=== PATIENT | female | born 1955 | race Caucasian/White ===

== ENCOUNTER 2019-04-25 13:13 | Outpatient (REF) | payer OTHER, SELFPAY ==
[2019-04-25 18:17] LABS: HCT 41.1 % (36.0-46.0); HGB 13.4 g/dL (12.0-15.5); Mean Corp. HGB Concentration 32.6 g/dL (32.0-36.0); Mean Corpuscular Hemoglobin 28.8 pg (27.0-33.0); Mean Corpuscular Volume 88.4 fL (80-95); Mean Platelet Volume 11.7 fL (8.0-11.0); Platelet Count 219 x1000/uL (130-400); RBC 4.65 m/cumm (4.00-5.20); RBC Distribution Width 13.9 % (11.7-14.6); White Blood Cell Count 6.34 k/cumm (4.4-10.8)
[2019-04-25 18:38] LABS: ALT 23 U/L (14-59); AST 31 U/L (15-37); Albumin 4.3 g/dL (3.4-5.0); Alkaline Phosphatase 79 U/L (46-116); Anion Gap 11.2 mmol/L (3-11); BUN 25 mg/dL (7-18); CO2 26.8 mmol/L (21.0-32.0); CREATININE 1.16 mg/dL (0.55-1.02); Calcium 9.1 mg/dL (8.5-10.1); Calculated LDL 240 mg/dL; Chloride 102 mmol/L (98-107); Cholesterol 315 mg/dL (50-200); Estimated GFR 47.49 (mL/min/1.73m2); Glucose 98 mg/dL (70-100); HDL Cholesterol 38 mg/dL (40-60); Potassium 4.3 mmol/L (3.5-5.1); Sodium 140 mmol/L (136-145); TSH (W/Ref FT4) 69.07 uIU/mL (0.36-3.74); Total Protein 8.2 g/dL (6.4-8.2); Triglyceride 187 mg/dL (30-150)
[2019-04-25 19:06] LABS: FREE T4 0.17 ng/dL (0.76-1.46)
[2019-04-25 19:35] LABS: Hemoglobin A1C 6.5 % (4.5-6.2)
== END 2019-04-25 13:33 ==
LOC: LBO 13:13
PROVIDERS: PCP Nurse Practitioner; Visit Provider Nurse Practitioner
DX: E66.9 Obesity, unspecified (principal); N95.0 Postmenopausal bleeding; R40.0 Somnolence; Z83.3 Family history of diabetes mellitus; I10 Essential (primary) hypertension
CPT/HCPCS: 80053; 80061; 83721; 85027; 83036; 84439; 84443

== ENCOUNTER 2019-05-23 00:48 | Outpatient (CLI) | payer OTHER, SELFPAY ==
--- NOTE | 2019-05-23 08:50 | DI.MAMMO_ITS ---
EXAM: MG MAMMO SCREENING CLINICAL HISTORY: screening, Z12.39. TECHNIQUE: Mammograms were interpreted according to the usual protocol including computer analysis w [employer] CAD system, tomosynthesis and C-view imaging. COMPARISON: No exams were available for comparison FINDINGS: The breast tissue is of moderate radiodensity. There is ill-defined region of asymmetric increased d ensity in the lateral portion of the right breast, which could represent an excrescence on the patien t's skin. There are no suspicious calcifications. In the absence of prior images, then further evalu ation with a craniocaudad compression spot film and if appropriate ultrasound is recommended. IMPRESSION: Region of small nodularity in the right breast. Further evaluation with a craniocaudad compression sp ot film and ultrasound is suggested. Category 0, this is a BI-RADS category B examination. BI-RADS Cat 0 - Assessment Incomplete: Need additional imaging evaluation Breast Density - Category B - Scattered areas of fibroglandular density
== END 2019-05-23 01:08 ==
PROVIDERS: PCP Nurse Practitioner; Visit Provider Nurse Practitioner
DX: Z12.31 Encounter for screening mammogram for malignant neoplasm of breast (principal); R92.8 Other abnormal and inconclusive findings on diagnostic imaging of breast
CPT/HCPCS: 77063; 77067

== ENCOUNTER 2019-06-05 01:21 | Outpatient (CLI) | payer OTHER, SELFPAY ==
--- NOTE | 2019-06-05 14:45 | DI.MAMMO_ITS ---
EXAM: US BREAST RT LIMITED AND MAMMOGRAM CLINICAL HISTORY: ASYMMETRIC INCREASED DENSITY IN LATERAL PORTION RT BREAST, F/U MAMMO TECHNIQUE: Additional images are interpreted according to the usual protocol including tomosynthesis and 2D imaging. Ultrasound performed using standard protocol. COMPARISON: No exams were available for comparison FINDINGS: Additional mammographic views of the right breast and right breast ultrasound are interpreted in conj unction. These examinations were obtained to evaluate an area of asymmetric density seen laterally i n the right breast on CC view of recent mammogram. Additional mammographic views show some persisten t radiodensity in this area but no definite mass. Breast ultrasound shows no evidence of a mass or c yst of the right breast. IMPRESSION: No specific evidence of malignancy at this time. Follow-up unilateral right breast mammogram recomme nded in 6 months. Category 3. Breast density, category B. BI-RADS Cat 3 - 6 month - Probably Benign Finding: Recommend follow-up mammography in 6 months. Breast Density - Category B - Scattered areas of fibroglandular density
== END 2019-06-05 01:41 ==
PROVIDERS: PCP Nurse Practitioner; Visit Provider Nurse Practitioner
DX: Z12.31 Encounter for screening mammogram for malignant neoplasm of breast (principal); R92.8 Other abnormal and inconclusive findings on diagnostic imaging of breast; N60.81 Other benign mammary dysplasias of right breast
CPT/HCPCS: 76642; 77063; 77067

== ENCOUNTER 2019-06-05 14:11 | Outpatient (REF) | payer OTHER, SELFPAY ==
--- NOTE | 2019-06-05 13:40 | PAPFT_PTH ---
PATIENT: Jessica Stokes LOC: [facility] U#:[id number] AGE/SX: 63/F ROOM: RE06/05/[address]: Rachel Sheridan : 1955 BED: DIS: 06/05/2019 SPEC #: [id number] RECD: 06/05/19 17:47 STATUS: MARLIN REMelody #: [id number] LATESHA: 06/05/19 13:[address]: Rachel Sheridan DEPT: [facility] Cytology RECD BY: Lara Garces ENTERED: 06/05/19 17:47 SP TYPE: PAPFT JUDSON DR: Paulette Carbajal APRN Tissues: 1 - CX/ENDOCX FOR PAP SMEARS Procedures: PAP THIN PREP/[facility] Screening HPV DNA PROBE Comments: [id number]
== END 2019-06-05 14:31 ==
LOC: LBN 14:11
PROVIDERS: PCP Nurse Practitioner; Visit Provider Obstetrics & Gynecology Gynecology
DX: Z12.4 Encounter for screening for malignant neoplasm of cervix (principal); Z11.51 Encounter for screening for human papillomavirus (HPV)
CPT/HCPCS: 88142; 87624

== ENCOUNTER 2019-11-21 02:50 | Outpatient (CLI) | payer OTHER, SELFPAY ==
[2019-11-21 08:32] LABS: Hemoglobin A1C 6.5 % (3.8-5.6)
[2019-11-21 09:34] LABS: Calculated LDL 147 mg/dL (<100); Cholesterol 219 mg/dL (<200); HDL Cholesterol 34 mg/dL (40-60); Triglyceride 190 mg/dL (<150)
[2019-11-21 09:50] LABS: FREE T4 0.83 ng/dL (0.76-1.46)
== END 2019-11-21 03:10 ==
PROVIDERS: PCP Nurse Practitioner; Visit Provider Nurse Practitioner
DX: E03.9 Hypothyroidism, unspecified (principal); I10 Essential (primary) hypertension; E11.9 Type 2 diabetes mellitus without complications; E78.00 Pure hypercholesterolemia, unspecified
CPT/HCPCS: 36415; 80061; 83036; 84439; 84443

== ENCOUNTER 2019-11-21 09:04 | Outpatient (CLI) | payer OTHER, SELFPAY ==
--- NOTE | 2019-11-21 08:12 | DIABASSESS_ITS ---
DESCRIPTION/ASSESSMENT: Jessica is here with A1c of 6.5. Nutrition: Jessica states she knows she needs to improve her eating habits. Physical Activity - minimal stating she is tired after work Medication / Monitoring - none Risks/Related health history - reported blood sugar is elevated. She is not in medication at this time. Coping - states she has high stress working at [employer] 5 days a week. INTERVENTION: Explained diagnostic criteria for diabetes and her early identification. Emphasized early intensive intervention for long lasting benefits. Food Guidelines - reviewed diabetes food guide focused on carbohydrate sources, portions, distribution, vegetables. Label reading focused on carbohydrate, fiber and polyunsaturated fats. She is able to translate the food guide to her sister's old exchange list from 1971 which she is familiar with and feels has worked for her in the past. She intends to follow [id number] calorie plan. Physical activity: Jessica had exercise equipment that needs to be cleaned off and she agrees to do this. In addition, she is willing to begin walking `0 minutes a day working up to 20 minutes most days. Risks/Related health history - discussed relation of hypertension with sodium intake. Coping: Jessica is aware that physical activity may be a good stress reliever for her. ACTION PLAN: Jessica will follow 12-1500 calorie meal plan focused on carbohydrate sources and increasing vegetables Jessica will work toward 20 minutes walking or equivalent daily 7 days a week. We will be in touch by telephone for follow up. Individual MNT __2__ units billed TIME IN: 814 OUT: 854 No DM group education series being offered at this time.
== END 2019-11-21 09:24 ==
PROVIDERS: PCP Nurse Practitioner; Visit Provider Dietitian, Registered
DX: E11.9 Type 2 diabetes mellitus without complications (principal); Z71.3 Dietary counseling and surveillance; Z79.4 Long term (current) use of insulin
CPT/HCPCS: 97802

== ENCOUNTER 2020-02-27 02:39 | Outpatient (CLI) | payer OTHER, SELFPAY ==
[2020-02-27 09:26] LABS: BUN 23 mg/dL (7-18); CREATININE 0.93 mg/dL (0.55-1.02); Calcium 9.3 mg/dL (8.5-10.1); Chloride 104 mmol/L (98-107); Glucose 102 mg/dL (74-106); Potassium 4.1 mmol/L (3.5-5.1); Sodium 140 mmol/L (136-145); TSH (W/Ref FT4) 1.11 uIU/mL (0.36-3.74)
== END 2020-02-27 02:59 ==
PROVIDERS: PCP Nurse Practitioner; Visit Provider Nurse Practitioner
DX: E03.9 Hypothyroidism, unspecified (principal); R94.4 Abnormal results of kidney function studies
CPT/HCPCS: 36415; 80048; 84443

== ENCOUNTER 2020-11-05 01:33 | Outpatient (CLI) | payer OTHER, SELFPAY ==
--- NOTE | 2020-11-05 07:00 | DI.US_ITS ---
EXAM: Bilateral US SOFT TISSUE EXTREMITY CLINICAL HISTORY: BILAT WRIST MASSES, ? LIPOMAS,M25.539,R22.33. TECHNIQUE: Ultrasound was performed using standard protocol. COMPARISON: No previous for comparison. FINDINGS: Sonographic assessment utilizing grayscale and color Doppler imaging was performed and targeted to th e area of clinical concern. In the right wrist, there is a 1.5 x 0.6 x 1.7 cm fluid collection on the dorsal medial wrist which m ay be associated with an adjacent tendon. Differential considerations include tenosynovitis or gangl ion. There is also 1.0 x 0.3 x 1.2 cm simple fluid collection in the dorsal lateral aspect of the wr ist. This may represent a ganglion or other cystic lesion. In the left wrist, there is a 2.5 x 4 x 0.9 cm complex cystic lesion on the dorsum of the wrist with some peripheral vascularity. It does appear that tendons are associated with this collection. Diffe rential considerations include tenosynovitis or ganglion. An infectious or hemorrhagic process canno t be excluded given the vascularity and internal debris. IMPRESSION: Fluid collections on the dorsum of the both wrists. Please see the above discussion for complete det ails. MRI of the wrists should be considered for further evaluation. DATA REPOSITORY:
== END 2020-11-05 01:53 ==
PROVIDERS: PCP Nurse Practitioner; Visit Provider Nurse Practitioner
DX: R22.32 Localized swelling, mass and lump, left upper limb (principal); R22.31 Localized swelling, mass and lump, right upper limb
CPT/HCPCS: 76881

== ENCOUNTER 2020-11-13 02:22 | Outpatient (CLI) | payer OTHER, SELFPAY ==
[2020-11-13 08:32] LABS: HCT 40.9 % (36.0-46.0); HGB 13.3 g/dL (11.2-15.7); MCH 27.4 pg (27.0-33.0); MCHC 32.5 % (32.0-36.0); MCV 84.3 fL (80-95); MPV 10.4 fL (8.0-11.0); Platelet Count 202 10^3/uL (130-400); RBC 4.85 10^6/uL (3.93-5.22); RDW 12.7 % (11.7-14.6); RDW-SD 39.1 fL; WBC 9.39 10^3/uL (4.4-10.8)
[2020-11-13 09:43] LABS: ALT 22 U/L (14-59); AST 16 U/L (15-37); Albumin 3.7 g/dL (3.4-5.0); Alkaline Phosphatase 103 U/L (46-116); Anion Gap 8.2 mmol/L (3-11); BUN 23 mg/dL (7-18); Bilirubin, Total 0.9 mg/dL (0.2-1.0); CO2 27.8 mmol/L (21.0-32.0); CREATININE 0.9 mg/dL (0.55-1.02); Calcium 9.1 mg/dL (8.5-10.1); Calculated LDL 133 mg/dL (<100); Chloride 103 mmol/L (98-107); Cholesterol 195 mg/dL (<200); Glucose 98 mg/dL (74-106); HDL Cholesterol 43 mg/dL (40-60); Potassium 4.3 mmol/L (3.5-5.1); Sodium 139 mmol/L (136-145); TSH (W/Ref FT4) 0.38 uIU/mL (0.36-3.74); Total Protein 7.4 g/dL (6.4-8.2); Triglyceride 97 mg/dL (<150)
[2020-11-13 09:55] LABS: C-Reactive Protein 0.76 mg/dL (0.0-0.3)
[2020-11-13 12:00] LABS: ESR 28 mm/hr (<or=30)
[2020-11-13 16:55] LABS: Rheumatoid Factor <8.6 IU/mL (<12.0)
[2020-11-14 10:46] LABS: Lyme Ab w Rflx to Lyme Confirm Negative (Negative)
[2020-11-14 15:00] LABS: ANA Interpretation Negative (Negative)
== END 2020-11-13 02:23 | disposition home or self-care (01) ==
PROVIDERS: PCP Nurse Practitioner; Visit Provider Nurse Practitioner
DX: I10 Essential (primary) hypertension (principal); E03.9 Hypothyroidism, unspecified; E78.00 Pure hypercholesterolemia, unspecified; R22.33 Localized swelling, mass and lump, upper limb, bilateral; R20.0 Anesthesia of skin; G89.29 Other chronic pain
CPT/HCPCS: 36415; 80053; 80061; 85027; 85652; 84443; 86038; 86140; 86431; 86618

== ENCOUNTER 2021-12-16 01:42 | Outpatient (CLI) | payer OTHER, SELFPAY ==
[2021-12-16 09:06] LABS: ALT 26 U/L (14-59); AST 18 U/L (15-37); Albumin 3.8 g/dL (3.4-5.0); Alkaline Phosphatase 100 U/L (46-116); Anion Gap 7.1 mmol/L (3-11); BUN 21 mg/dL (7-18); Bilirubin, Total 0.9 mg/dL (0.2-1.0); CO2 30.9 mmol/L (21.0-32.0); CREATININE 0.9 mg/dL (0.55-1.02); Calcium 8.9 mg/dL (8.5-10.1); Calculated LDL 145 mg/dL (<100); Chloride 104 mmol/L (98-107); Cholesterol 216 mg/dL (<200); Glucose 100 mg/dL (74-106); HDL Cholesterol 42 mg/dL (40-60); Potassium 4.2 mmol/L (3.5-5.1); Sodium 142 mmol/L (136-145); TSH (W/Ref FT4) 1.44 uIU/mL (0.36-3.74); Total Protein 7.4 g/dL (6.4-8.2); Triglyceride 148 mg/dL (<150)
== END 2021-12-16 01:43 | disposition home or self-care (01) ==
LOC: LBO 01:43
PROVIDERS: PCP Nurse Practitioner; Visit Provider Nurse Practitioner
DX: I10 Essential (primary) hypertension (principal); E78.00 Pure hypercholesterolemia, unspecified
CPT/HCPCS: 36415; 80053; 80061; 84443

== ENCOUNTER 2022-12-15 02:41 | Outpatient (CLI) | payer OTHER, SELFPAY ==
[2022-12-15 11:19] LABS: Anion Gap 5.9 mmol/L (3-11); BUN 19 mg/dL (7-18); CO2 30.1 mmol/L (21.0-32.0); CREATININE 0.9 mg/dL (0.55-1.02); Calcium 9.2 mg/dL (8.5-10.1); Chloride 102 mmol/L (98-107); Estimated GFR 70.95 (mL/min/1.73m2); Glucose 98 mg/dL (74-106); Sodium 138 mmol/L (136-145); TSH (W/Ref FT4) 1.25 uIU/mL (0.36-3.74)
== END 2022-12-15 02:42 | disposition home or self-care (01) ==
LOC: LBO 02:43
PROVIDERS: PCP Nurse Practitioner; Visit Provider Nurse Practitioner
DX: E03.9 Hypothyroidism, unspecified (principal); I10 Essential (primary) hypertension; E78.00 Pure hypercholesterolemia, unspecified; R73.03 Prediabetes
CPT/HCPCS: 36415; 80048; 84443

== ENCOUNTER 2023-11-02 03:19 | Outpatient (CLI) | payer OTHER, SELFPAY ==
[2023-11-02 08:36] LABS: Abs Immature Grans 0.03 10^3/uL (0.0-0.06); Absolute Basophil Count 0.07 10^3/uL (0.0-0.2); Absolute Eosinophil Count 0.17 10^3/uL (0.0-0.7); Absolute Monocyte Count 0.52 10^3/uL (0.1-0.8); Eosinophils % 2.4; HCT 39.6 % (36.0-46.0); HGB 13.2 g/dL (11.2-15.7); Immature Grans % 0.4; MCH 27.6 pg (27.0-33.0); MCHC 33.3 % (32.0-36.0); MCV 83 fL (80-95); MPV 10.4 fL (8.0-11.0); Monocytes % 7.4; Neutrophils % 58.8; Platelet Count 227 10^3/uL (130-400); RBC 4.78 10^6/uL (3.93-5.22); RDW 12.6 % (11.7-14.6); RDW-SD 38.3 fL; WBC 6.99 10^3/uL (4.4-10.8)
[2023-11-02 09:34] LABS: ALT 51 U/L (14-59); AST 25 U/L (15-37); Albumin 3.6 g/dL (3.4-5.0); Alkaline Phosphatase 90 U/L (46-116); Anion Gap 7.1 mmol/L (3-11); BUN 20 mg/dL (7-18); CO2 32.9 mmol/L (21.0-32.0); Calcium 9.3 mg/dL (8.5-10.1); Calculated LDL 108 mg/dL (<100); Chloride 101 mmol/L (98-107); Cholesterol 162 mg/dL (<200); Estimated GFR 62.13 (mL/min/1.73m2); Glucose 121 mg/dL (74-106); HDL Cholesterol 37 mg/dL (40-60); Potassium 3.1 mmol/L (3.5-5.1); Sodium 141 mmol/L (136-145); TSH (W/Ref FT4) 1.19 uIU/mL (0.36-3.74); Total Protein 7.4 g/dL (6.4-8.2); Triglyceride 86 mg/dL (<150)
[2023-11-02 09:56] LABS: Hemoglobin A1C 6.2 % (<5.7)
== END 2023-11-02 03:20 | disposition home or self-care (01) ==
LOC: LBO 03:20
PROVIDERS: Absent Provider Nurse Practitioner; PCP Nurse Practitioner; Referring Provider Nurse Practitioner; Visit Provider Nurse Practitioner
DX: R73.03 Prediabetes (principal); I10 Essential (primary) hypertension; E03.9 Hypothyroidism, unspecified; E66.9 Obesity, unspecified
CPT/HCPCS: 36415; 80053; 80061; 83036; 84443; 85025

== ENCOUNTER 2024-11-15 03:37 | Outpatient (CLI) | payer OTHER, SELFPAY ==
[2024-11-15 09:04] LABS: Anion Gap 6.8 mmol/L (3-11); BUN 21 mg/dL (7-18); CO2 32.2 mmol/L (21.0-32.0); CREATININE 0.9 mg/dL (0.55-1.02); Calcium 9.5 mg/dL (8.5-10.1); Chloride 102 mmol/L (98-107); Estimated GFR 70.07 (mL/min/1.73m2); Glucose 114 mg/dL (74-106); Potassium 4.1 mmol/L (3.5-5.1); Sodium 141 mmol/L (136-145); TSH (W/Ref FT4) 2.42 uIU/mL (0.36-3.74)
== END 2024-11-15 03:38 | disposition home or self-care (01) ==
LOC: LBO 03:37
PROVIDERS: PCP Nurse Practitioner; Referring Provider Nurse Practitioner; Visit Provider Nurse Practitioner
DX: I10 Essential (primary) hypertension (principal); E03.9 Hypothyroidism, unspecified
CPT/HCPCS: 36415; 80048; 84443

== ENCOUNTER 2024-11-22 02:47 | Outpatient (CLI) | payer OTHER, SELFPAY ==
--- NOTE | 2024-11-22 09:43 | TELEFU_ITS ---
Date of service: 11/22/24 Time of Service: 09:00 Nutrition Note NOTE: Jessica referred to nutrition visit for diabetes education/mgt with comment from provider that A1C has gone up from 6.2% last summer to 6.6%. Jessica seems to know where her diet needs some fine tuning - tends to skip break fast and eat from the hot food area at work ([employer]) which often include fries, fried chicken and other processed meats. She was great at logging her intake over 2 days for us to review and we went over 3 big things she could focus on to make some good changes: 1) focus on traditional, whole foods and stay away (most of the time) from processed meats and refined starches/ultra processed foods 2)work towards consistently consuming less than 30 grams of added sugar 3) worrk towareds consistently consuming at least 25 grams of fiber We reviewed how to track fiber/added sugar and sources, We looked at some common items she could try to chagne up (like drinking 8oz oj in the morning with other starches and added sugars.) Encouraged being proactive generally so she is not choosing food to eat when she is already hungry Emphasized good sleep, stress mgt and exercise (along with activity) to help improve insulin sensitivity. Time Spent in Nutritional Counseling and Treatment: 25 minutes
== END 2024-11-22 02:48 | disposition home or self-care (01) ==
LOC: DS 02:47
PROVIDERS: PCP Nurse Practitioner; Visit Provider Dietitian, Registered
DX: E11.9 Type 2 diabetes mellitus without complications (principal)
CPT/HCPCS: 00123; 97802

== ENCOUNTER 2025-03-14 13:06 | Outpatient (CLI) | payer OTHER, SELFPAY ==
[2025-03-14 13:11] LABS: HCT 40.1 % (36.0-46.0); HGB 13.6 g/dL (11.2-15.7); MCH 27.9 pg (27.0-33.0); MCHC 33.9 % (32.0-36.0); MCV 82 fL (80-95); MPV 10.3 fL (8.0-11.0); Platelet Count 228 10^3/uL (130-400); RBC 4.88 10^6/uL (3.93-5.22); RDW 12.5 % (11.7-14.6); RDW-SD 37.8 fL; WBC 7.68 10^3/uL (4.4-10.8)
[2025-03-14 13:36] LABS: D-Dimer 1022 ng/mlFEU (<500)
[2025-03-14 13:52] LABS: ALT 32 U/L (14-59); AST 25 U/L (15-37); Albumin 4.2 g/dL (3.4-5.0); Alkaline Phosphatase 93 U/L (46-116); Bilirubin, Direct 0.2 mg/dL (0.0-0.2); Bilirubin, Total 1.1 mg/dL (0.2-1.0); Calculated LDL 76 mg/dL (<100); Cholesterol 146 mg/dL (<200); HDL Cholesterol 51 mg/dL (>or=50); Total Protein 8.0 g/dL (6.4-8.2); Triglyceride 95 mg/dL (<150)
[2025-03-14 13:53] LABS: INR 1.0 (0.9-1.1); Prothrombin Time 10.2 sec (9.1-11.1)
[2025-03-14 14:23] LABS: Creatine Kinase 62 U/L (26-192)
== END 2025-03-14 13:07 | disposition home or self-care (01) ==
LOC: LBO 13:07
PROVIDERS: PCP Nurse Practitioner; Visit Provider Nurse Practitioner Family
DX: E78.00 Pure hypercholesterolemia, unspecified (principal); M79.606 Pain in leg, unspecified
CPT/HCPCS: 36415; 80061; 80076; 82550; 85027; 84450; 84460; 85379; 85610

== ENCOUNTER 2025-04-17 10:43 | Outpatient (CLI) | payer OTHER, SELFPAY ==
--- NOTE | 2025-04-17 09:49 | DI.RAD_ITS ---
Exam(s) XR KNEE RT 4V AP,LAT,TIFFANIE,PAT EXAM: XR KNEE RT 4V AP,LAT,TIFFANIE,PAT CLINICAL HISTORY: R KNEE PAIN. TECHNIQUE: 2D digital imaging was performed. Three views. COMPARISON: No exams were available for comparison FINDINGS: BONES: No acute fracture is present. No bony destructive lesion is seen. JOINTS: The knee is normally aligned. Mild femoral tibial joint space narrowing and periarticular spurring. There is spurring at the articular aspect of the patella over the joint space is not narrowed. A small joint effusion is seen. SOFT TISSUE: Normal. IMPRESSION: Mild degenerative changes of the right knee. DATA REPOSITORY: RADIATION DOSE DELIVERED:
== END 2025-04-17 10:44 | disposition home or self-care (01) ==
LOC: DIORS 10:43
PROVIDERS: PCP Nurse Practitioner; Visit Provider Physician Assistant
DX: M71.20 Synovial cyst of popliteal space [Baker], unspecified knee (principal); M17.11 Unilateral primary osteoarthritis, right knee
CPT/HCPCS: 73564

== ENCOUNTER 2025-04-25 02:19 | Outpatient (CLI) | payer OTHER, SELFPAY ==
[2025-04-25 08:32] LABS: ALT 20 U/L (14-59); AST 17 U/L (15-37); Creatine Kinase 38 U/L (26-192)
== END 2025-04-25 02:20 | disposition home or self-care (01) ==
LOC: LBO 02:20
PROVIDERS: PCP Nurse Practitioner; Referring Provider Nurse Practitioner Family; Visit Provider Nurse Practitioner Family
DX: M79.606 Pain in leg, unspecified (principal); E78.00 Pure hypercholesterolemia, unspecified
CPT/HCPCS: 36415; 82550; 84450; 84460